=== PATIENT | female | born 1995 | race Two or more races ===

== ENCOUNTER 2018-02-08 13:18 | Emergency (ER) | payer OTHER ==
[2018-02-08 14:03] LABS: ABSOLUTE BASOPHILS # (AUTO) 0.1 10^3/uL (0.0-0.2); ABSOLUTE EOSINOPHILS # (AUTO) 0.2 10^3/uL (0.0-0.6); ABSOLUTE LYMPHOCYTES (AUTO) 3.2 10^3/uL (0.5-4.7); ABSOLUTE MONOCYTES (AUTO) 0.6 10^3/uL (0.1-1.4); BASOPHILS % (AUTO) 0.8 % (0-2); EOSINOPHILS % (AUTO) 1.8 % (0-6); HEMATOCRIT 36.6 % (36.0-47.0); HEMOGLOBIN 12.2 g/dL (12.0-15.5); LYMPHOCYTES % (AUTO) 31.7 % (13-45); MEAN CORPUSCULAR HGB CONC 33.3 g/dL (32.0-36.0); MEAN CORPUSCULAR VOLUME 84 fl (80-97); MONOCYTES % (AUTO) 6.2 % (3-13); PLATELET COUNT 307 10^3/uL (150-450); RED BLOOD COUNT 4.35 10^6/uL (3.72-5.28); SEGMENTED NEUTROPHILS % (AUTO) 59.5 % (42-78); TOTAL CELLS COUNTED % (AUTO) 100 %
[2018-02-08 14:20] LABS: ACETAMINOPHEN 11 ug/mL (10-30); ALANINE AMINOTRANSFERASE 20 U/L (9-52); ALBUMIN 3.7 g/dL (3.5-5.0); ALKALINE PHOSPHATASE 62 U/L (38-126); ANION GAP 14 (5-19); ASPARTATE AMINO TRANSFERASE 16 U/L (14-36); BILIRUBIN,DIRECT 0.2 mg/dL (0.0-0.4); BILIRUBIN,TOTAL 0.3 mg/dL (0.2-1.3); BLOOD UREA NITROGEN 17 mg/dL (7-20); CALCIUM 9.5 mg/dL (8.4-10.2); CARBON DIOXIDE 21 mmol/L (22-30); CHLORIDE 104 mmol/L (98-107); GLUCOSE 153 mg/dL (75-110); POTASSIUM 5.3 mmol/L (3.6-5.0); SODIUM 138.8 mmol/L (137-145); TOTAL PROTEIN 7.1 g/dL (6.3-8.2)
--- NOTE | 2018-02-08 14:23 | ER Document Report ---
ED Psych Disorder / Suicide - General Mode of Arrival: Ambulatory Information source: Patient TRAVEL OUTSIDE OF THE [place] IN LAST 30 DAYS: No <FABBY WATKINS - Last Filed: 02/08/18 14:16> <ROMA GUTIERREZ - Last Filed: 02/08/18 23:47> <SREEDHAR FIELDS - Last Filed: 02/09/18 13:36> - General Chief Complaint: Overdose Stated Complaint: OVERDOSE Time Seen by Provider: 02/08/18 13:49 Notes: 22-year-old female that presents after intentional overdose. It is not known what exactly the patient took, at bedside states he believes the patient took most of her medicines which include Prozac, Wellbutrin, Effexor, and Seroquel. Patient left a rather lengthy suicide note at the house. at bedside states that the patient called him and sounded very drowsy so he went home to find her face down on the ground. states the patient has had one overdose attempt in the past which was 02/07/2017. (FABBY WATKINS) - Related Data Allergies/Adverse Reactions: No Known Allergies Allergy (Unverified 02/09/18 05:17) Past Medical History - General Information source: Patient - Social History Smoking Status: Never Smoker Cigarette use (# per day): No Chew tobacco use (# tins/day): No Frequency of alcohol use: None Drug Abuse: None Lives with: Family Family History: Reviewed & Not Pertinent Patient has suicidal ideation: No Patient has homicidal ideation: No - Medical History Medical History: Negative Renal/ Medical History: Denies: Hx Peritoneal Dialysis Surgical Hx: Negative <FABBY WATKINS - Last Filed: 02/08/18 14:16> Review of Systems - Review of Systems -: Yes ROS unobtainable due to patient's medical condition - given by significant other at bedside Constitutional: No symptoms reported EENT: No symptoms reported Cardiovascular: No symptoms reported Respiratory: No symptoms reported Gastrointestinal: No symptoms reported Genitourinary: No symptoms reported Female Genitourinary: No symptoms reported Musculoskeletal: No symptoms reported Skin: No symptoms reported Hematologic/Lymphatic: No symptoms reported Neurological/Psychological: See HPI, Depression, Other - overdose -: Yes All other systems reviewed and negative <FABBY WATKINS - Last Filed: 02/08/18 14:16> Physical Exam <FABBY WATKINS - Last Filed: 02/08/18 14:16> <ROMA GUTIERREZ - Last Filed: 02/08/18 23:47> <SREEDHAR FIELDS - Last Filed: 02/09/18 13:36> - Vital signs Vitals: Resp Pulse Ox 18 100 02/08/18 13:38 02/08/18 13:38 - Notes Notes: Physical Exam: General: Alert, somnolent. HEENT: Normocephalic. Atraumatic. PERRL. Extraocular movements intact. Oropharynx clear. Very dry mucous membranes. Neck: Supple. Non-tender. Respiratory: No respiratory distress. Clear and equal breath sounds bilaterally. Cardiovascular: Regular rate and rhythm. Abdominal: Normal Inspection. Non-tender. No distension. Normal Bowel Sounds. Back: Non-tender. No deformity or step off. Extremities: Moves all four extremities. Upper extremities: Normal inspection. Normal ROM. Lower extremities: Normal inspection. No edema. Normal ROM. Neurological: Acted unresponsive but when asking about allergies, she denied any. When stating that I needed to look at her throat the patient opened her mouth wide. Psychological: Unable to assess Skin: Warm. Dry. Normal color. (FABBY WATKINS) Course - Laboratory Result Diagrams: 02/08/18 13:45 02/08/18 13:45 <FABYB WATKINS - Last Filed: 02/08/18 14:16> - Laboratory Result Diagrams: 02/08/18 13:45 02/08/18 13:45 <ROMA GUTIERREZ - Last Filed: 02/08/18 23:47> - Laboratory Result Diagrams: 02/09/18 09:41 02/09/18 09:41 - EKG Interpretation by Sc EKG shows normal: Sinus rhythm, [place], Intervals, QRS Complexes, ST-T Waves Rate: Normal - 64 Rhythm: NSR When compared to previous EKG there are: Previous EKG unavailable - Transfer of Care Care transferred to following provider: Dr. Gutierrez <SREEDHAR FIELDS - Last Filed: 02/09/18 13:36> - Re-evaluation Re-evalutation: 02/08/18 19:40 Patient alert and oriented but groggy at bedside upon reevaluation. Patient story of what she took is inconsistent with what she had told Dr. Monzon. She states that she took an entire bottle of Tylenol and 90 [address]idine although she told Dr. Lyod she took 60 clonidine an unknown amount Tylenol. Repeat Tylenol and salicylate in progress. 02/08/18 23:47 Repeat acetaminophen and salicylate approximately 8 hours after patient was here are negative to rule out any toxicity. Tox screen is negative. Patient continues remain arousable. Is unknown what patient truly took but I did call poison control to discuss with them the medication list that was provided by tr[facility]. Patient ~12 hours from time of taking medications and she is medically cleared from all substances other than if she was on extended release venlafaxine this would require a 24hr hold for medical clearance. Unsure if medication is extended release or not. No concerning vital signs as well as no QTC prolongation and no QRS prolongation. (ROMA GUTIERREZ) - Vital Signs Vital signs: Temp Pulse Resp BP Pulse Ox 97.7 F 20 107/76 96 02/09/18 07:02 02/09/18 07:02 02/09/18 07:02 02/09/18 07:02 - Laboratory Laboratory results interpreted by me: 02/08/18 02/08/18 02/08/18 13:45 14:25 20:40 Hct Potassium 5.3 H Chloride Carbon Dioxide 21 L Glucose 153 H Albumin Urine Ascorbic Acid 40 H Salicylates < 1.0 L < 1.0 L Acetaminophen < 10 L 02/09/18 02/09/18 09:41 09:41 Hct 35.8 L Potassium Chloride 111 H Carbon Dioxide 20 L Glucose 131 H Albumin 3.3 L Urine Ascorbic Acid Salicylates Acetaminophen - Transfer of Care Notes: 02/08/18 17:23 Patient is pending psych evaluation, we will probably placed on IVC hold, patient needs to be observed for another few hours prior to moving over to the psychiatric part of the emergency room. (SREEDHAR FIELDS) Discharge <FABBY WATKINS - Last Filed: 02/08/18 14:16> <ROMA GUTIERREZ - Last Filed: 02/08/18 23:47> <SREEDHAR FIELDS - Last Filed: 02/09/18 13:36> - Discharge Clinical Impression: Suicidal ideation Overdose Qualifiers: Encounter type: initial encounter Injury intent: intentional self-harm Qualified Code(s): T50.902A - Poisoning by unspecified drugs, medicaments and biological substances, intentional self-harm, initial encounter Depression Qualifiers: Depression Type: unspecified Qualified Code(s): F32.9 - Major depressive disorder, single episode, unspecified Hypotension Qualifiers: Hypotension type: unspecified hypotension type Qualified Code(s): I95.9 - Hypotension, unspecified Scribe Documentation - Scribe Written by Scribe:: Jerome De, 02/08/2018 1425 acting as scribe for :: Orly <FABBY WATKINS - Last Filed: 02/08/18 14:16>
[2018-02-08 14:24] LABS: ALCOHOL < 10 mg/dL (NONE DETECTED); SALICYLATE < 1.0 mg/dL (2.0-20.0)
[2018-02-08] MEDS ORDERED: NORMAL SALINE 1000 ML 1,000 ML IV ONE ×3 (14:26→23:43)
[2018-02-08] MEDS ORDERED: NORMAL SALINE 1000 ML 1,000 ML IV PRN (14:36)
[2018-02-08 14:56] LABS: APPEARANCE,URINE CLEAR; BILIRUBIN,URINE NEGATIVE (NEGATIVE); COLOR,URINE YELLOW; GLUCOSE, URINE NEGATIVE (NEGATIVE); KETONES,URINE NEGATIVE (NEGATIVE); LEUKOCYTE ESTERASE,URINE NEGATIVE (NEGATIVE); NITRITE,URINE NEGATIVE (NEGATIVE); PROTEIN,URINE NEGATIVE (NEGATIVE); URINE SPECIFIC GRAVITY 1.013; UROBILINOGEN,URINE NEGATIVE mg/dL (<2.0)
[2018-02-08 15:09] LABS: URINE AMPHETAMINES SCREEN NEGATIVE; URINE BARBITURATES SCREEN NEGATIVE; URINE BENZODIAZEPINES SCREEN NEGATIVE; URINE COCAINE SCREEN NEGATIVE; URINE METHADONE SCREEN NEGATIVE; URINE PHENCYCLIDINE SCREEN NEGATIVE
[2018-02-08 15:11] LABS: URINE MARIJUANA (THC) SCREEN NEGATIVE
[2018-02-08 21:22] LABS: ACETAMINOPHEN < 10 ug/mL (10-30); SALICYLATE < 1.0 mg/dL (2.0-20.0)
--- NOTE | 2018-02-08 23:37 | EKG REPORT ---
SEVERITY:- NORMAL ECG - SINUS RHYTHM : Confirmed by: Denise Leon MD 08-Feb-2018 23:37:15
--- NOTE | 2018-02-09 07:37 | PSYCHOLOGICAL NOTE ---
Psych Note - Psych Note Psych Note: Met with Patient briefly. She was still very groggy despite having received 3 Liters since her arrival. Patient reported she took the following the medications in her attempt to overdose and : 1. 60 tablets of 0.1 mg clonidine 2. 60 tablets of 37.5 mg venlafaxine (two bottles) 3. a bottle of melatonin 4. Tylenol (unk amount) Patient also had bottles of seroquel, lunesta, methylphenidate and others available but reported she did not want to take them all at once because she didn't want to throw them up. Patient admitted toa previous attempt one year earlier requiring inpatient treatment. She indicated she received EMDR treatment which she elected to continue at [facility] with Krissy Billingsley LPC. Patient stated she left Krissy and another friend a message prior to passing out. She also reported she contacted her but does not recall the conversation. The Patient also left a detailed suicide note that was written the previous evening as she indicated she had every intent to . It should be noted Patient was not well oriented, continued to be difficult to understand at times, and required a great deal of prompting to keep her on track with the conversation. A complete evaluation was not conducted secondary to her altered mental status. She was not placed on IVC at this time due to her physical status, however, as she medically clears, she likely will require IVC and inpatient psychiatric care. ED Physician in agreement with recommendation and disposition.
--- NOTE | 2018-02-09 09:38 | ER Document Report ---
Doctor's Note Notes: 02/09/18 09:35 Medical rounds: Chart reviewed and patient interviewed briefly. Patient came to emergency department yesterday after having taken an overdose of multiple medications in a suicide attempt. Precisely what medicines she she ingested is unclear, but list of possibilities include antihypertensives and antidepressants. She probably did take a significant amount of antihypertensives, as her blood pressure on presentation was rather low, but this is now increasing with only supportive care. Other than the low blood pressure, vital signs are normal. Laboratory values are satisfactory. On examination, the patient is alert, oriented, and cooperative. She verbalizes no somatic complaints. She is medically stable at this time. A petition for involuntary commitment is pending. Repeat evaluation by psych will take place later today.
[2018-02-09 10:01] LABS: ABSOLUTE EOSINOPHILS # (AUTO) 0.2 10^3/uL (0.0-0.6); ABSOLUTE LYMPHOCYTES (AUTO) 2.4 10^3/uL (0.5-4.7); ABSOLUTE MONOCYTES (AUTO) 0.5 10^3/uL (0.1-1.4); ABSOLUTE NEUT (AUTO) 7.2 10^3/uL (1.7-8.2); BASOPHILS % (AUTO) 0.4 % (0-2); EOSINOPHILS % (AUTO) 1.9 % (0-6); HEMATOCRIT 35.8 % (36.0-47.0); LYMPHOCYTES % (AUTO) 23.2 % (13-45); MEAN CORPUSCULAR HEMOGLOBIN 28.2 pg (27.0-33.4); MEAN CORPUSCULAR HGB CONC 33.5 g/dL (32.0-36.0); MEAN CORPUSCULAR VOLUME 84 fl (80-97); MONOCYTES % (AUTO) 5.2 % (3-13); PLATELET COUNT 283 10^3/uL (150-450); RED BLOOD COUNT 4.26 10^6/uL (3.72-5.28); RED CELL DISTRIBUTION WIDTH 13.2 % (11.5-14.0); SEGMENTED NEUTROPHILS % (AUTO) 69.3 % (42-78); TOTAL CELLS COUNTED % (AUTO) 100 %; WHITE BLOOD COUNT 10.4 10^3/uL (4.0-10.5)
[2018-02-09 10:31] LABS: ALANINE AMINOTRANSFERASE 20 U/L (9-52); ALBUMIN 3.3 g/dL (3.5-5.0); ALKALINE PHOSPHATASE 64 U/L (38-126); ANION GAP 12 (5-19); ASPARTATE AMINO TRANSFERASE 17 U/L (14-36); BILIRUBIN,DIRECT 0.2 mg/dL (0.0-0.4); BILIRUBIN,TOTAL 0.3 mg/dL (0.2-1.3); BLOOD UREA NITROGEN 8 mg/dL (7-20); CALCIUM 9.2 mg/dL (8.4-10.2); CARBON DIOXIDE 20 mmol/L (22-30); CHLORIDE 111 mmol/L (98-107); CREATINE KINASE 35 U/L (30-135); GLUCOSE 131 mg/dL (75-110); TOTAL PROTEIN 6.7 g/dL (6.3-8.2)
[2018-02-09 10:32] LABS: POTASSIUM 4.2 mmol/L (3.6-5.0)
--- NOTE | 2018-02-09 12:25 | PSYCHOLOGICAL NOTE ---
Psych Note - Psych Note Psych Note: Reason for Consult: intentional overdose Consent permissions: Patient's , Lobo, is at bedside per patient's request pt presents to ER after called EMS for his for an OD. Pt called her to say goodbye and was incoherent. arrived at home moments after EMS arrived and pt was face down. Check in conducted with patient Patient disclosed that she tried to overdose and states she did not want to . She confirms she also attempted before one year ago (02/07/17) and received inpatient treatment for 3 1/2 week at [facility]. She disclosed that she has a flashback while in the shower and started screaming. She disclosed her was able to calm her. He states that happened the day before her overdose; patient's , Lobo, interrupted the patient to remind her that that event was 3 days ago not the night before she overdosed. Patient seemed surprised by this information. She reports that she has been working on her trauma in therapy and started EMDR 2 weeks ago. She reports she also had a recent medication change. Patient's disclosed that he knew the patient was not feeling well and when he talked to her at about 0800 she just wanted to talk and told him she took one of her Seroquel and was going to take a nap. He continued to disclosed that he next heard from her at noon and he stated she was slurring her words and "I think she regretted taking the meds, I don't know but I called EMS and got into my car to come home...EMS beat me home by just a few minutes." Diagnosis 309.81 (F43.10) Posttraumatic Stress Disorder 296.30 (F33.9) Major Depressive Disprder, recurrent, unspecified 300.00 (F41.9) Unspecified Anxiety Disorder Impression/Plan: patient is recommended to continue under IVC. Patient intentionally overdosed with intent to kill herself. Patient wrote a 2 page suicide note to her . Patient is recommended for inpatient psychiatric treatment and placement is currently being sought. Dr. Monzon was consulted on the care and management of this patient; attending physician is in agreement with recommendations and disposition.
--- NOTE | 2018-02-09 13:57 | ER Document Report ---
Doctor's Note Notes: 02/09/18 13:56 Reassessment prior to transfer: Patient is alert, oriented, and cooperative. She denies any somatic complaints. Vital signs are normal. She is stable for transfer.
[2018-02-09 14:00] VITALS: BP 106/65
== END 2018-02-09 14:00 ==
LOC: ER 13:18
DX: T43.222A Poisoning by selective serotonin reuptake inhibitors, intentional self-harm, initial encounter (principal); T43.292A Poisoning by other antidepressants, intentional self-harm, initial encounter; T43.212A Poisoning by selective serotonin and norepinephrine reuptake inhibitors, intentional self-harm, initial encounter; T43.592A Poisoning by other antipsychotics and neuroleptics, intentional self-harm, initial encounter; Y92.009 Unspecified place in unspecified non-institutional (private) residence as the place of occurrence of the external cause; I95.9 Hypotension, unspecified; F32.9 Major depressive disorder, single episode, unspecified; F43.10 Post-traumatic stress disorder, unspecified; F33.9 Major depressive disorder, recurrent, unspecified; F41.9 Anxiety disorder, unspecified
CPT/HCPCS: 93005; 99285; 96360; 96361; 36415; 80307 ×4; 82550; 84703; 85025; 80053; 81001; 93010; J7030 ×2